=== PATIENT | female | born 1975 | race Two or more races ===

== ENCOUNTER 2020-11-22 10:54 | Day surgery (SDC) | payer BC ==
--- NOTE | 2020-11-22 10:27 | PCM.PREANE ---
Preanesthetic Assessment - Anesthesia/Transfusion/Family Hx Anesthesia History: Prior Anesthesia Without Reaction Family History of Anesthesia Reaction: No Transfusion History: No Prior Transfusion(s) - Review of Systems General: No Symptoms Pulmonary: No Symptoms Cardiovascular: No Symptoms Gastrointestinal: Abdominal Pain Neurological: No Symptoms Other: Reports: None - Physical Assessment NPO Status Date: 11/22/20 NPO Status Time: 00:00 Height: 5 ft 6 in Weight: 167 lb ASA Class: 2 Mental Status: Alert & Oriented x3 Airway Class: Mallampati = 1 Dentition: Reports: Normal Dentition Thyro-Mental Finger Breadths: 3 Mouth Opening Finger Breadths: 3 ROM/Head Extension: Full Lungs: Clear to Auscultation, Normal Respiratory Effort Cardiovascular: Regular Rate, Regular Rhythm - Allergies Allergies/Adverse Reactions: Allergies Allergy/AdvReac Type Severity Reaction Status Date / Time No Known Allergies Allergy Verified 11/18/20 14:20 - Acknowledgements Anesthesia Type Planned: General Anesthesia Pt an Appropriate Candidate for the Planned Anesthesia: Yes Alternatives and Risks of Anesthesia Discussed w Pt/Guardian: Yes Pt/Guardian Understands and Agrees with Anesthesia Plan: Yes PreAnesthesia Questionnaire HEENT History: Reports: Other (See Below) Other HEENT History: wears glasses Cardiovascular History: Reports: None Respiratory History: Reports: None Gastrointestinal History: Reports: None Other Genitourinary History: hx of frequent UTI's in the past- not recently MATERIALS MGMT TECH History: Reports: None Musculoskeletal History: Reports: Neck Pain, Chronic Neurological History: Reports: None Psychiatric History: Reports: None Endocrine/Metabolic History: Reports: Obesity/BMI 30+ Hematologic History: Reports: None Immunologic History: Reports: None Oncologic (Cancer) History: Reports: None Dermatologic History: Reports: None - Infectious Disease History Infectious Disease History: Reports: None - Past Surgical History Head Surgeries/Procedures: Reports: None HEENT Surgical History: Reports: Tonsillectomy Cardiovascular Surgical History: Reports: None Respiratory Surgical History: Reports: None GI Surgical History: Reports: None Female Surgical History: Reports: None Endocrine Surgical History: Reports: None Neurological Surgical History: Reports: None Musculoskeletal Surgical History: Reports: Carpal Tunnel, Shoulder Surgery Other Musculoskeletal Surgeries/Procedures:: Hx of Left RTCR and left CTR Oncologic Surgical History: Reports: None Dermatological Surgical History: Reports: None - SUBSTANCE USE Tobacco Use Status *Q: Never Tobacco User Recreational Drug Use History: No - HOME MEDS Home Medications: Home Meds . [No Known Home Meds] 11/13/20 [History] . [No Known Home Meds] 11/18/20 [History] - CURRENT (IN HOUSE) MEDS Current Meds: Current Medications Albuterol (Albuterol 0.083% 2.5 Mg/3 Ml Neb Soln) 2.5 mg NEB ONETIME PRN PRN Reason: Wheezing Droperidol (Droperidol 5 Mg/2 Ml Sdv) 0.625 mg IVPUSH ONETIME PRN PRN Reason: Nausea/Vomiting Fentanyl (Fentanyl 100 Mcg/2 Ml Sdv) 50 mcg IVPUSH Q5M PRN PRN Reason: Pain (mild 1-3) Hydromorphone HCl (Hydromorphone 2 Mg/Ml Syringe) 0.5 mg IVPUSH Q10M PRN PRN Reason: Pain (moderate 4-6) Lactated Ringer's (Ringers, Lactated) 1,000 mls @ 125 mls/hr IV ASDIRECTED COSME Metoclopramide HCl (Metoclopramide 10 Mg/2 Ml Sdv) 10 mg IVPUSH ONETIME PRN PRN Reason: Nausea/Vomiting Morphine Sulfate (Morphine 2 Mg/Ml Syringe) 2 mg IVPUSH Q10M PRN PRN Reason: Pain (severe 7-10) Naloxone HCl (Naloxone 0.4 Mg/Ml Syringe) 0.1 mg IVPUSH ASDIRECTED PRN PRN Reason: Respiratory Depression Ondansetron HCl (Ondansetron 4 Mg/2 Ml Sdv) 4 mg IVPUSH ONETIME PRN PRN Reason: Nausea/Vomiting Discontinued Medications Cefoxitin Sodium 2 gm/ Premix 50 mls @ 100 mls/hr IV ONETIME ONE Stop: 11/22/20 09:29
[~2020-11-22 10:54] MED LIST: Albuterol 0.083% 2.5 MG/3 ML Neb Soln NEB PRN; HYDROmorphone 2 MG/ML Syringe IVPUSH PRN; Lactated Ringers 1,000 ML IV SCH; Lidocaine 2% 5 ML SDV ONE; Metoclopramide 10 MG/2 ML SDV IVPUSH PRN; Morphine 2 MG/ML SYRINGE IVPUSH PRN; Naloxone 0.4 MG/ML Syringe IVPUSH PRN; Ondansetron 4 MG/2 ML SDV IVPUSH PRN; Ondansetron 4 MG/2 ML SDV ONE; Rocuronium Bromide 50 MG/5 ML Syringe ONE; Sugammadex Sodium 200 MG/2 ML VIAL ONE; cefOXitin 2 GM in Premix Bag 1 BAG IV ONE; fentaNYL 100 MCG/2 ML SDV IVPUSH PRN; fentaNYL 100 MCG/2 ML SDV ONE; propofoL 100 ML ONE
[2020-11-22] MEDS ORDERED: cefOXitin 1 GM Vial ONE (11:53)
[2020-11-22] MEDS ORDERED: ceFAZolin 1 GM Vial ONE (12:36)
[2020-11-22] MEDS ORDERED: Bupivacaine 0.5% 30 ML SDV ONE (12:36)
[2020-11-22] MEDS ORDERED: Ketorolac 30 MG/ML SDV ONE (13:16)
[2020-11-22] MEDS ORDERED: Glycopyrrolate 0.2 MG/ML SDV ONE (13:25)
[2020-11-22] MEDS ORDERED: Morphine 10 MG/ML Syringe IVPUSH PRN (14:20)
[2020-11-22] MEDS ORDERED: Acetaminophen/HYDROcodone 325-5 MG Tab PO PRN (14:20)
--- NOTE | 2020-11-22 14:22 | PCM.OPNOTE ---
- General Post-Op/Procedure Note Date of Surgery/Procedure: 11/22/20 Operative Procedure(s): Laparoscopic cholecystectomy Pre Op Diagnosis: Symptomatic cholelithiasis Post-Op Diagnosis: Same Anesthesia Technique: General ET Tube (ASA II) Primary Surgeon: Theo Valdivia Fluid Replacement, Intraop: 700 Output, Urine Amount: 375 EBL in mLs: 10 Condition: Good Free Text/Narrative:: Intake & Output 11/22/20 11/22/20 11/22/20 03:59 11:59 19:59 Output Total 375 Balance -375 DICTATION [id number] CPT CODE 94272
[2020-11-22] MEDS ORDERED: Lactated Ringers 1,000 ML IV SCH (14:30)
--- NOTE | 2020-11-22 14:54 | PCM.POSTAN ---
POST ANESTHESIA ASSESSMENT - MENTAL STATUS Mental Status: Oriented, Somnolent - VITAL SIGNS Vital Signs: Last Vital Signs Temp 97.2 F 11/22/20 14:50 Pulse 61 11/22/20 14:50 Resp 14 11/22/20 14:50 BP 126/73 11/22/20 14:50 Pulse Ox 98 11/22/20 14:50 - RESPIRATORY Respiratory Status: Respiratory Rate WNL, Airway Patent, O2 Saturation Stable - CARDIOVASCULAR CV Status: Pulse Rate WNL, Blood Pressure Stable - GASTROINTESTINAL GI Status: No Symptoms - POST OP HYDRATION Hydration Status: Adequate & Stable
--- NOTE | 2020-11-22 14:54 | PCM48HPAN ---
Post Anesthesia Note - EVALUATION WITHIN 48HRS OF ANESTHETIC Vital Signs in Normal Range: Yes Patient Participated in Evaluation: Yes Respiratory Function Stable: Yes Airway Patent: Yes Cardiovascular Function Stable: Yes Hydration Status Stable: Yes Pain Control Satisfactory: Yes Nausea and Vomiting Control Satisfactory: Yes Mental Status Recovered: Yes Vital Signs: Last Vital Signs Temp 97.2 F 11/22/20 14:50 Pulse 61 11/22/20 14:50 Resp 14 11/22/20 14:50 BP 126/73 11/22/20 14:50 Pulse Ox 98 11/22/20 14:50
--- NOTE | 2020-11-22 16:58 | OR ---
SURGEON: Theo Valdivia M.D. DATE OF PROCEDURE: 11/22/2020 OPERATION PERFORMED: Laparoscopic cholecystectomy. PRIMARY SURGEON: Theo Valdivia M.D. ANESTHESIA: General endotracheal. ASA CLASSIFICATION: II. PREOPERATIVE DIAGNOSIS: Symptomatic cholelithiasis. POSTOPERATIVE DIAGNOSIS: Symptomatic cholelithiasis. ESTIMATED BLOOD LOSS: 10 mL. INTRAOPERATIVE FLUID REPLACEMENT: 700 mL of crystalloid. INTRAOPERATIVE URINARY OUTPUT: 375 mL. DESCRIPTION OF PROCEDURE: The patient was taken to the operating room, placed on the operating table in the supine position. Thigh-high TEDs and sequential compression boots were placed. Time-out was called for appropriate identification of patient and procedure. Following satisfactory attainment of general endotracheal anesthesia, a Glynn catheter was placed in the patient's urinary bladder. The abdomen was prepped with DuraPrep solution, and sterile drapes were applied. Skin just below the umbilicus was infiltrated with 0.5% Marcaine solution. Skin incision was made and deepened through the subcutaneous tissue obtaining hemostasis with the use of electrocautery. The Veress needle was introduced into the peritoneal cavity. Saline drop test was positive. Carbon dioxide pneumoperitoneum was established with the release set at 13 cm of water. Once satisfactory pneumoperitoneum had been established, a 5 mm camera and port were placed through the infraumbilical incision. The abdomen was then inspected and was felt appropriate to proceed with a laparoscopic cholecystectomy. The patient was now positioned with her feet down and rolled to the left. Under camera vision, 12 mm subxiphoid, 5 mm midclavicular, and 5 mm anterior axillary ports were placed. Each incision was preemptively infiltrated with 0.5% Marcaine. The gallbladder was then grasped, the cholecystohepatic triangle was dissected free obtaining a good critical view of the cystic duct. That was then serially hemoclipped and transected with the laparoscopic Metzenbaum scissors. Our attention was now turned to the cystic artery which was also dissected free and after obtaining a good critical view, was serially hemoclipped and then divided with the laparoscopic Metzenbaum scissors. The gallbladder was then dissected away from its bed using electrocautery. Once gallbladder was completely mobilized, it was placed in an EndoCatch. This remained in situ while the right upper quadrant was inspected. No bile or blood was seen coming from the bed of the gallbladder. This was then irrigated with sterile saline solution, and all fluid was aspirated. The right hemidiaphragm was irrigated with 250 mL of saline with 20 mL of 0.5% Marcaine solution. Once that was accomplished, the EndoCatch containing gallbladder was removed along with the 12 mm port. It did require some enlargement of the incision to retrieve the gallbladder, but we were eventually able to do so quite satisfactorily. Under camera vision, 5 mm midclavicular and anterior axillary ports were removed and finally the infraumbilical camera and port were removed. Wounds were inspected for hemostasis. No bleeding was noted. The subxiphoid and infraumbilical incisions were closed in two layers approximating the subcutaneous tissue with 3- 0 Vicryl and the skin with subcuticular 4-0 Monocryl. The anterior axillary and midclavicular incisions were closed with subcuticular 4-0 Monocryl. All incisions were Steri-Stripped and dressed with sterile Tegaderm pads. Glynn catheter was removed prior to emergence from anesthesia. Following emergence from anesthesia and extubation, the patient was taken to recovery room in satisfactory condition. RM YOUNG /[id number]
== END 2020-11-22 16:49 | disposition home or self-care (01) ==
LOC: MW.SDS 10:54
PROVIDERS: ATTEND Surgery
DX: K80.10 Calculus of gallbladder with chronic cholecystitis without obstruction (principal); E66.9 Obesity, unspecified; Z98.890 Other specified postprocedural states; Z87.891 Personal history of nicotine dependence
CPT/HCPCS: 47562; 81025; 88304; J0131; J0694; J1885; J2405; J2704; J3010; J3490; J7120; 00790; J0690

== ENCOUNTER 2023-12-17 08:22 | Day surgery (SDC) | payer BC ==
[2023-12-17] MEDS: Lactated Ringers 1,000 ML IV SCH (09:00)
[2023-12-17] MEDS ORDERED: Lidocaine 2% 5 ML SDV ONE (09:40)
[2023-12-17] MEDS ORDERED: Propofol 200 MG/20 ML SDV ONE (09:41)
[2023-12-17] MEDS ORDERED: Lactated Ringers 1,000 ML IV SCH (10:30)
== END 2023-12-17 10:59 | disposition home or self-care (01) ==
LOC: MW.SDS 08:22
PROVIDERS: ATTEND Surgery
DX: Z12.11 Encounter for screening for malignant neoplasm of colon (principal); K57.30 Diverticulosis of large intestine without perforation or abscess without bleeding; E66.9 Obesity, unspecified; E03.9 Hypothyroidism, unspecified; F17.210 Nicotine dependence, cigarettes, uncomplicated; Z88.8 Allergy status to other drugs, medicaments and biological substances; Z79.899 Other long term (current) drug therapy; Z79.890 Hormone replacement therapy; Z68.29 Body mass index [BMI] 29.0-29.9, adult
CPT/HCPCS: 45378; 81025; J2704; J7120; J3490

== ENCOUNTER 2024-03-18 18:41 | Emergency (ER) | payer BC ==
[2024-03-18] MEDS: traMADol 50 MG Tab PO STA (20:01)
== END 2024-03-18 21:39 | disposition home or self-care (01) ==
LOC: MW.ED 18:41
DX: M26.643 Arthritis of bilateral temporomandibular joint (principal); Z88.5 Allergy status to narcotic agent; Z75.8 Other problems related to medical facilities and other health care
CPT/HCPCS: 70450; 70486; 99283; A9270